=== PATIENT | male | born 1955 | race Caucasian/White ===

== ENCOUNTER 2018-12-20 07:35 | Inpatient (IN) ==
--- NOTE | 2018-11-25 14:20 | Anesthesiology Consultation ---
Date of Service November 25, 2018 Assessment & Plan (1) Encounter for pre-operative examination: Chart Review Chart Review: Acceptable Risk for Surgery and Patient seen in Pre Admission Testing Teaching & Discussion Pre-Anesthesia Teaching/Discussion Notes: Instructed NPO after midnight before surgery,except medications with 15 cc of water. Medication instructions provided according to the PAT guidelines. History Surgery Operation Date: 12/20/18 10:40 Proposed Procedures p Right Total Hip Arthroplasty - Des Botello MD Height/Weight Height: 5 ft 9 in Weight: 108.5 kg Allergies Allergy/AdvReac Type Severity Reaction Status Date / Time celecoxib Allergy Unknown hives Verified 08/01/18 05:37 Penicillins Allergy Unknown RASH Verified 08/01/18 12:50 valdecoxib Allergy Unknown RASH Verified 08/01/18 12:50 Medications Home Medications Medication Instructions Recorded Confirmed Last Taken amlodipine 5 mg PO QAM 07/11/18 11/25/18 08/01/18 0500 gemfibrozil 1 tab PO BID 07/11/18 11/25/18 07/31/18 09:00 levothyroxine 50 mcg PO QAM 07/11/18 11/25/18 08/01/18 0430 pravastatin 10 mg PO QAM 07/11/18 11/25/18 07/31/18 09:00 Past Medical History Medical History Chronic back pain Degenerative disc disease Hyperlipidemia Hypertension Hypothyroidism Obesity Osteoarthritis Past Surgical History Surgical History History of back surgery X2; L4-S1 DECOMPRESSION/FUSION= 08/01/18= GRADE VIEW 1 WITH CRICOID PRESSURE, ETT 8.0 AT [facility] History of total knee replacement LEFT Hx of arthroscopic knee surgery X3 Past Anesthesia History No Hx of Anesthesia Complications and No Family Hx of Anesthesia Complications History of PONV No Social History Smoking Status: Never smoker Do You Dip or Chew Tobacco: Yes (1/2 CAN/DAY (ADVISED NOT TO CHEW AM DOS)) Hx Alcohol Use: Yes Alcohol type: beer alcohol intake frequency: a few times a week Hx Substance Use: No Exercise / Class Metabolic Activity III < 4 Walking/Shop/Light housework Review of Systems Patient denies chest pain, shortness of breath, wheezing, palpitations. Physical Exam Vital Signs VITALS BP 144/83 P 89 TEMP 98.6 SP02 96%RA RESP 20 Full neck and c-spine range of motion. Full TMJ range of motion. TMD 3 finger breaths Mallampati Score 2 Dentition: intact Lungs: clear throughout to auscultation Cardiac: regular rate and rhythm, no murmurs noted Spine: normal Carotid arteries: negative bruit Extremities: no edema Testing Electrocardiogram Date: 07/12/18 Findings: + NSR @ (73) Chest X-Ray Date: 07/12/18 A few bibasilar linear densities favor subsegmental atelectasis or scarring. Otherwise, no acute process within the chest. Laboratory Results 11/25/18 14:40 11/25/18 14:00 Blood Type O Positive 11/25/18 14:40 Antibody Screen NEGATIVE 11/25/18 14:40 PT 10.6 Seconds (9.0-12.0) 11/25/18 14:40 INR 1.1 (0.9-1.1) 11/25/18 14:40 APTT 26.0 Seconds (21.0-31.0) 11/25/18 14:40
--- NOTE | 2018-11-25 14:21 | PAT Medication Instructions ---
Medication Instructions Date of Service November 25, 2018 Home Medications amlodipine 5 mg PO QAM gemfibrozil 1 tab PO BID levothyroxine 50 mcg PO QAM pravastatin 10 mg PO QAM STOP taking 24 hours before surgery gemfibrozil 1 tab PO BID Take morning of surgery With a small sip of water, OTHERWISE NOTHING TO EAT OR DRINK AFTER MIDNIGHT: amlodipine 5 mg PO QAM levothyroxine 50 mcg PO QAM pravastatin 10 mg PO QAM Other Notes If you have any questions please call us at [phone] or [phone] or [phone] or [phone]
[2018-11-25 15:26] LABS: Basophils # (auto) 0.02 K/uL (0-0.2); Basophils % (auto) 0.3 %; Eosinophils # (auto) 0.33 K/uL (0-0.5); Eosinophils % (auto) 5.5 %; Hematocrit (blood only) 41.3 % (42-52); Hemoglobin 14.3 g/dL (14.0-18.0); Immature Granulocytes # (auto) 0.01 K/uL (0.00-0.02); Immature Granulocytes % (auto) 0.2 %; Lymphocytes # (auto) 1.45 K/uL (1.2-3.4); Lymphocytes % (auto) 24.1 %; Mean Corpuscular Hgb Conc 34.6 g/dL (32-36); Mean Corpuscular Volume 84.5 fL (80-100); Mean Platelet Volume 10.9 fL (7.4-10.4); Monocytes # (auto) 0.39 K/uL (0.11-0.59); Monocytes % (auto) 6.5 %; Neutrophils # (auto) 3.81 K/uL (1.4-6.5); Neutrophils % (auto) 63.4 %; Platelet Count 213 K/uL (130-400); RDW Coefficient of Variation 14.2 % (11.5-14.5); RDW Standard Deviation 43.6 fL (36.4-46.3); Red Blood Count 4.89 M/uL (4.7-6.1); White Blood Count 6.01 K/uL (4.8-10.8)
[2018-11-25 15:36] LABS: BUN Creatinine Ratio 11.8 (10-20); Calcium 8.8 mg/dl (8.5-10.1); Creatinine Clr Calc Pharmacy 76.8 ml/min; Est GFR (African American) 73.9; Est GFR (Non-African American) 63.8; Potassium 3.9 mmol/L (3.5-5.1)
[2018-11-25 15:37] LABS: C Reactive Protein 1.03 mg/dl (0-0.29)
[2018-11-25 15:41] LABS: INR 1.1 (0.9-1.1); Prothrombin Time 10.6 Seconds (9.0-12.0)
--- NOTE | 2018-12-14 12:55 | History and Physical Report ---
DATE OF ADMISSION: 11/25/2018 CHIEF COMPLAINT: Right hip pain and discomfort. HISTORY OF PRESENT ILLNESS: A 63-year-old gentleman known to me from a previous left knee replacement done about 3 years ago who presents for surgical treatment of his right hip. He has had a several-year history of hip, buttock, groin and thigh pain. He also had some back issues and recently had some back surgery done by Dr. Shaikh in July of this year. He has continued to struggle with his leg difficulty even after that. They apparently recommend he have his back fixed first. He continues to be bothered by groin pain and thigh pain. The more he walks, the more he limps. He has difficulty putting his shoes and socks on. X-rays show advanced hip arthritis. He now would like to have his right hip fixed. PAST MEDICAL HISTORY: 1. Hypertension. 2. Elevated cholesterol. PAST SURGICAL HISTORY: Previous surgeries include: 1. Back surgery x2, one in 2000 and one in July of 2018. 2. Left knee surgery done by myself, 01/25/2016. ALLERGIES: 1. PENICILLIN WHICH CAUSES HIVES AND ITCHING. No respiratory problems. 2. BEXTRA WHICH CAUSES HIVES. CURRENT MEDICINES: Include: 1. Gemfibrozil 600 mg twice a day. 2. Amlodipine 5 mg. 3. Levothyroxine 50 mcg a day. 4. Pravastatin 10 mg a day. SOCIAL HISTORY: A 63-year-old male patient from [place]. He is . Does not smoke. FAMILY HISTORY: Noncontributory. REVIEW OF SYSTEMS: Negative for diabetes, neurologic problem, vascular problem, bleeding disorders. No chest pain or shortness of breath. No history of DVT or PE. PHYSICAL EXAMINATION: GENERAL: Reveals a pleasant, middle-aged male. Looks to be in pretty good health. HEENT: Benign. NECK: Supple. No lymphadenopathy. LUNGS: Clear to auscultation. HEART: Regular rate and rhythm. ABDOMEN: Soft, nontender, nondistended. EXTREMITIES: Grossly neurovascularly intact except as follows: Examination of the right lower extremity reveals the patient walks with a limp. He is about a 0.5 cm short on the right side compared to the left. He has marked pain with any type of hip motion, particularly internal rotation. He can internally rotate to -10, external rotation to 20 degrees. Negative straight leg raise. X-RAYS: X-rays of the right hip were reviewed. Shows advanced right hip DJD. He has got complete loss of his superior joint space. He has got cystic change of the femoral head and acetabulum. Fairly large medial osteophyte. ASSESSMENT: A 63-year-old male, 3 years out from a left knee replacement and about 5 months out from a recent spine surgery with advanced right hip degenerative joint disease. Appears like his hip is really the limiting factor. He has failed conservative care. PLAN: He would like to proceed with right total hip replacement. We are going to take him to the operating room and do a right total hip replacement. The risks and benefits of this procedure were explained to the patient including but not limited to DVT, PE, , infection, neurological injury, vascular injury, bleeding problem, pain, limited range of motion, stiffness, failure to relieve symptoms, incomplete relief of symptoms, need for further surgery in future, fracture, leg length inequality, nerve palsy, etc. The patient understands and desires to proceed. Informed consent was obtained. He does have his reported PENICILLIN ALLERGY, but does not sound like a true allergy and we can give him Ancef preoperatively. He is planning to be discharged to home using [facility] home health program.
[~2018-12-20 07:35] MED LIST: ACETAMINOPHEN 500 MG TAB PO SCH; BUPIVACAINE 0.5 % 5 MG/1 ML PF 10ML VIAL ONE; CEFAZOLIN 2000MG 2,000 MG/15 ML SYR IV SCH; CeleBREX 200 MG CAP PO SCH; FAMOTIDINE 20 MG TAB PO SCH; GABAPENTIN 300 MG PO SCH; LR 500ML BOLUS, THEN 15ML/HR IV SCH; LR 60ML/HR IV SCH; METOCLOPRAMIDE HCL 10 MG TABLET PO SCH; SCOPOLAMINE 1.5 MG TDSY TD SCH; TRANEXAMIC ACID 1,000 MG **IV Pre-op IV SCH
--- NOTE | 2018-12-20 08:39 | History & Physical Bridge Note ---
Date of Service December 20, 2018 History & Physical Bridge Note I have examined the patient, reviewed the History & Physical and in the interval since the performance of the History & Physical I have noted the following changes of clinical significance: no changes noted
[2018-12-20] MEDS ORDERED: CEFAZOLIN 2,000 MG/15 ML IV PUSH IV ONE (09:33)
[2018-12-20] MEDS ORDERED: fentaNYL citrate 100 MCG/2 ML VIAL IV PRN (10:08)
[2018-12-20] MEDS ORDERED: ePHEDrine sulfate 50 MG/ML AMP IV PRN ×2 (10:08→10:10)
[2018-12-20] MEDS ORDERED: ONDANSETRON INJ 2 MG/ML 2 ML VIAL IV PRN ×3 (10:08→14:36)
[2018-12-20] MEDS ORDERED: ATROPINE SULFATE 0.1 MG/ML 10ML SYR IV PRN (10:08)
[2018-12-20] MEDS ORDERED: NALOXONE HCL 0.4 MG/1 ML VIAL/CARP IV PRN ×2 (10:10→14:36)
[2018-12-20] MEDS ORDERED: LORazepam 0.5 MG/1 ML VIAL IV PRN (10:10)
[2018-12-20] MEDS ORDERED: MEPERIDINE HCL 25 MG/ML CARP IV PRN (10:10)
[2018-12-20] MEDS ORDERED: MoRPHine SULFATE 4 MG/ML 1 ML CARP\\VIAL IV PRN (10:10)
[2018-12-20] MEDS ORDERED: DiphenhydrAMINE HCL 50 MG/ML VIAL IV PRN ×2 (10:10)
[2018-12-20] MEDS ORDERED: LORazepam 1 MG TAB PO PRN (10:10)
[2018-12-20] MEDS ORDERED: HYDROmorphone INJ 0.5 MG/0.5 ML SYR IV PRN ×2 (10:10→14:36)
[2018-12-20] MEDS ORDERED: MoRPHine SULFATE PF 1 MG/ML 10 ML AMP/VIAL INT SPINAL ONE (10:10)
[2018-12-20] MEDS ORDERED: LACTATED RINGER'S 500 ML IV PRN (10:10)
[2018-12-20] MEDS ORDERED: NALBUPHINE HCL INJ 10 MG/ML AMP IV PRN (10:10)
[2018-12-20] MEDS ORDERED: KETOROLAC 30 MG/ML VIAL IV PRN (10:10)
[2018-12-20] MEDS ORDERED: NALOXONE HCL 0.08 MG in SYRINGE 1.8 ML IV PRN (10:10)
[2018-12-20] MEDS ORDERED: NALOXONE HCL 1 MG in SODIUM CHLORIDE 0.9% 1000ML 1,000 ML IV PRN (10:10)
[2018-12-20] MEDS ORDERED: PROMETHAZINE HCL 6.25 MG in SODIUM CHLORIDE 0.9% 50 ML IV PRN (10:10)
[2018-12-20] MEDS ORDERED: NO NARCOTICS OR SEDATIVES SCH (10:15)
[2018-12-20] MEDS ORDERED: MIDAZOLAM HCL 1 MG/ML 2ML VIAL ONE ×2 (10:27→11:21)
[2018-12-20] MEDS ORDERED: fentaNYL citrate 100 MCG/2 ML VIAL ONE (10:27)
[2018-12-20] MEDS ORDERED: MoRPHine SULFATE PF 1 MG/ML 10 ML AMP/VIAL ONE (10:28)
[2018-12-20] MEDS ORDERED: BACITRACIN INJ 50,000 UNIT VIAL ONE (10:49)
[2018-12-20] MEDS ORDERED: BUPIVACAINE/EPINEPHRINE 0.5% MPF 1:200,000 30 ML VIAL ONE (10:49)
[2018-12-20] MEDS ORDERED: KETAMINE HCL INJ 50 MG/ML 10 ML VIAL ONE (11:21)
[2018-12-20] MEDS ORDERED: DiphenhydrAMINE HCL 50 MG/ML VIAL ONE (11:40)
[2018-12-20] MEDS ORDERED: ONDANSETRON INJ 2 MG/ML 2 ML VIAL ONE (11:40)
[2018-12-20] MEDS ORDERED: PROPOFOL IV EMULSION 10 MG/ML 20 ML VIAL IV ONE (12:31)
[2018-12-20] MEDS ORDERED: LIDOCAINE HCL 2% 2 ML VIAL/AMP(20MG/ML) INFIL ONE (12:31)
--- NOTE | 2018-12-20 12:44 | Post Operative Brief Note ---
Immediate Post Op Note v1 Date of Surgery December 20, 2018 Pre & Post Diagnosis Operation Date: 12/20/18 10:40 Pre-Op Diagnosis: Right Hip Degenerative Joint Disease Post-Op Diagnosis: Right Hip Degenerative Joint Disease Procedure Operation Date: 12/20/18 10:40 Actual Procedures p Right Total Hip Arthroplasty, Uncemented(Right) - Des Botello MD Surgeon Des Botello MD [employer] Supervisor Geena, PAC Estimated Blood Loss 300 Findings Consistent with Post-Op Diagnosis Fluids 1300 cc Specimens Right Femoral Head Drains Omer Catheter Anesthesia Type Spinal MAC Complications none Disposition Accompanied Patient To Recovery: Yes Disposition: Recovery Room
--- NOTE | 2018-12-20 13:32 | Anesthesiology Progress Note ---
Date of Service December 20, 2018 Anesthesia Post Procedure Vital Signs Vital Signs: Temp Pulse Pulse Resp BP Pulse Ox 12/20/18 13:20 61 16 145/81 H 63 L 12/20/18 13:10 76 15 151/75 H 99 12/20/18 13:00 74 15 147/86 H 99 12/20/18 12:50 102 H 17 124/88 97 12/20/18 12:44 36.2 C L 85 12 131/69 96 12/20/18 09:06 37 C 72 20 145/86 H 95 Pain Intensity Right Hip: Pain Intensity: 2 Notes Mental Status: alert / awake / arousable Patient Amnestic to Procedure: Yes Nausea / Vomiting: adequately controlled Pain: adequately controlled Airway Patency, RR, SpO2: stable & adequate BP & HR: stable & adequate Hydration State: stable & adequate Neuraxial Anesthesia: was administered and sensory block is resolving Anesthetic Complications: no major complications apparent
--- NOTE | 2018-12-20 13:49 | XRay Report ---
XR hip 1V RT w pelvis CLINICAL HISTORY: Postoperative evaluation. COMPARISON: Right hip radiographs November 22, 2018. FINDINGS: Postoperative findings within the lumbosacral spine are partially imaged. Alignment of the total right hip arthroplasty is anatomic. There are 2 acetabular screws. Skin jai are present. T here is no fracture or unexpected radiopaque foreign body. IMPRESSION: Expected findings following total right hip arthroplasty. Electronically signed by: Justino Marshall M.D. 12/20/2018 1:48 PM
[2018-12-20] MEDS ORDERED: BISACODYL 10 MG SUPP PR PRN (14:36)
[2018-12-20] MEDS ORDERED: METOCLOPRAMIDE HCL INJ 5 MG/ML 2 ML VIAL IV PRN (14:36)
[2018-12-20] MEDS ORDERED: MAGNESIUM HYDROXIDE SUSP 30 ML UDC PO PRN (14:36)
[2018-12-20] MEDS ORDERED: TAMSULOSIN HCL 0.4 MG CAP PO PRN (14:36)
[2018-12-20] MEDS ORDERED: TRAMADOL HCL 50 MG TABLET PO PRN (14:36)
[2018-12-20] MEDS ORDERED: ALUMINUM/MAGNESIUM SUSP 30 ML UDC PO PRN (14:36)
[2018-12-20] MEDS ORDERED: SODIUM CHLORIDE 0.9% 1000ML 1,000 ML IV SCH (14:36)
[2018-12-20] MEDS: SODIUM CHLORIDE 0.9% 1000ML 1,000 ML IV SCH (16:31)
[2018-12-20] MEDS: CHECK SCOPOLAMINE PATCH PLACEMENT SCH (17:19)
[2018-12-20] MEDS: FERROUS GLUCONATE 324 MG TAB PO SCH (18:32)
[2018-12-20] MEDS: ASCORBIC ACID 500 MG TAB PO SCH (18:32)
[2018-12-20] MEDS: CEFAZOLIN 2000MG 2,000 MG/15 ML SYR IV SCH (18:35)
[2018-12-20] MEDS ORDERED: TRANEXAMIC ACID 1,000 MG in 0.9 % SODIUM CHLORIDE 100 ML IV SCH (19:00)
[2018-12-20] MEDS: ASPIRIN 81 MG ECTAB PO SCH (20:40)
[2018-12-20] MEDS: GEMFIBROZIL 600 MG TAB PO SCH (20:40)
[2018-12-20] MEDS: DOCUSATE SODIUM 100 MG CAP PO SCH (20:40)
[2018-12-20] MEDS: ACETAMINOPHEN 500 MG TAB PO SCH (20:41)
[2018-12-20] MEDS ORDERED: SENNA 8.6 MG TAB PO SCH (21:00)
--- NOTE | 2018-12-20 23:30 | Operative Report ---
DATE OF OPERATION: 12/20/2018 SURGEON: Des Botello MD BLADE ALIGNER: SIL Wells PREOPERATIVE DIAGNOSIS: Right hip degenerative joint disease. POSTOPERATIVE DIAGNOSIS: Right hip degenerative joint disease. PROCEDURE PERFORMED: Right ceramic on highly cross-linked polyethylene uncemented total hip arthroplasty. COMPLICATIONS: None. ESTIMATED BLOOD LOSS: 300 mL. FLUID REPLACEMENT: 1300 mL of crystalloid fluid replacement. ANESTHESIA: Spinal. DRAINS: None. SPECIMENS: Right femoral head sent for pathology. OPERATIVE INDICATIONS: The patient is a 63-year-old gentleman who has had about a several year history of right hip pain and discomfort. He was also having some back issues and had some back surgery several months ago which did not give him a whole lot of relief. He continued to be debilitated by this right hip and leg pain. X-rays revealed advanced right hip DJD. He has failed conservative care and elected to proceed with total hip arthroplasty. OPERATIVE FINDINGS: Advanced right hip DJD. He had pretty extensive synovitis and had significant joint effusion. Grade 4 [id number] disease of the femoral head and acetabulum. Fairly large medial osteophyte of the acetabulum. OPERATIVE IMPLANTS: Operative implants consisted of, 1. Biomet G7 size 60 mm acetabular shell. 2. A 6.5 cancellous acetabular screws, 1 at 35 mm length and 1 at 25 mm length. 3. An apex hole eliminator. 4. The highly cross-linked polyethylene liner with a 60 mm outer diameter, 36 mm inner diameter. 5. DePuy size 15 KLA femoral stem. 6. A +5 x 36 mm ceramic articular ball. OPERATIVE PROCEDURE: The patient was taken to the Operating Room and placed on the Operating Room table in supine position. All contact areas were appropriately padded. I.V. antibiotics followed by anesthesia team. A spinal anesthetic had been implemented in the Holding Area. Omer catheter was placed in sterile fashion. The patient was then placed in the left lateral decubitus position. An axillary roll was placed. [facility] was used for positioning. The right hip and leg were then prepped and draped in usual sterile fashion. A posterolateral approach on the right hip was then performed through a curvilinear incision centered over the greater trochanter. Sharp dissection was carried through the subcutaneous tissue down to the level of the IT band and gluteal fascia. The IT band and gluteal fascia were incised longitudinally in line with skin incision. The underlying greater trochanteric bursa was excised. The piriformis and external rotators were tagged and taken off the posterior aspect of the hip joint capsule. Great care was taken throughout the procedure to protect the sciatic nerve at all times. Posterior capsulotomy was then performed. Hip was internally rotated and dislocated. Femoral neck osteotomy cut was made with the final cut about 12 mm above the lesser trochanter. Femoral head was removed and sent for pathology. The femur was retracted anteriorly. Attention was then drawn to the acetabulum. The acetabular labrum was excised. The pulvinar fat was excised. Sequential reaming of the acetabulum was then performed beginning with a size 53 and progressing up to 59. A Biomet G7 size 60 acetabular shell was then placed in about 40 degrees of lateral opening and 20 degrees of anteversion. It was fixed with two 6.5 cancellous acetabular screws. A trial liner was placed. Attention was then drawn to the femur. The proximal femur was entered with a cookie cutter followed by canal finder. I broached beginning with a size 8 and progressing up to 15. We got excellent fit ay 15. A Calcar reamer was used to smoothen off the calcar. I then trialed the hip in +5 x 36 mm articular ball seemed to recreate leg lengths equal and appropriate soft tissue tension as well as stability. It was fully stable in full extension and external rotation and flexion to 90 degrees, internal rotation to 60+ degrees. We elected to place these implants. All trial implants were removed. An apex hole eliminator was placed. A highly cross-linked polyethylene liner was placed. A DePuy size 15 KLA femoral stem was impacted in position. A +5 36 mm ceramic articular ball was placed. Hip was located and once again found to be stable. Attention was then drawn toward closing. The wound was irrigated with copious amounts of pulse lavage solution. I did inject locally with 60 mL of 0.5% Marcaine with epinephrine. The posterior capsule and external rotators were repaired through drill holes in the posterior trochanter with #2 Ti-Cron suture. The IT band and gluteal fascia were then closed with #1 PDS suture in running fashion. Subcutaneous tissues were then closed with #2 Dexon suture in a buried interrupted fashion. Skin was then closed with skin jai. Leg was then cleaned and dried and a sterile dressing of Xeroform, 4 x 4's, sterile ABD pad and foam tape was applied. The patient was then transferred to the Recovery Room in stable condition. The patient tolerated the procedure well with no complication. All needle and sponge counts were correct at the end of the operation. I attest to the content of the Intraoperative Record and any orders documented therein. Any exception s are noted below.
[2018-12-21] MEDS: CEFAZOLIN 2000MG 2,000 MG/15 ML SYR IV SCH (01:39)
[2018-12-21] MEDS: CHECK SCOPOLAMINE PATCH PLACEMENT SCH (01:40)
[2018-12-21] MEDS: SODIUM CHLORIDE 0.9% 1000ML 1,000 ML IV SCH (02:59)
[2018-12-21] MEDS: ACETAMINOPHEN 500 MG TAB PO SCH ×2 (05:56→13:21)
[2018-12-21] MEDS ORDERED: LEVOTHYROXINE SODIUM 50 MCG TABLET PO SCH (06:30)
[2018-12-21 07:40] LABS: Basophils # (auto) 0.01 K/uL (0-0.2); Basophils % (auto) 0.1 %; Eosinophils # (auto) 0.17 K/uL (0-0.5); Eosinophils % (auto) 1.7 %; Hematocrit (blood only) 39.3 % (42-52); Hemoglobin 13.5 g/dL (14.0-18.0); Immature Granulocytes # (auto) 0.03 K/uL (0.00-0.02); Immature Granulocytes % (auto) 0.3 %; Lymphocytes # (auto) 1.02 K/uL (1.2-3.4); Mean Corpuscular Hgb Conc 34.4 g/dL (32-36); Mean Corpuscular Volume 85.6 fL (80-100); Monocytes # (auto) 1.21 K/uL (0.11-0.59); Monocytes % (auto) 11.9 %; Neutrophils # (auto) 7.73 K/uL (1.4-6.5); Platelet Count 180 K/uL (130-400); RDW Coefficient of Variation 14.1 % (11.5-14.5); Red Blood Count 4.59 M/uL (4.7-6.1); White Blood Count 10.17 K/uL (4.8-10.8)
[2018-12-21 08:14] LABS: BUN Creatinine Ratio 10.1 (10-20); Calcium 8.1 mg/dl (8.5-10.1); Creatinine Clr Calc Pharmacy 72.9 ml/min; Est GFR (African American) 69.7; Est GFR (Non-African American) 60.2; Potassium 3.5 mmol/L (3.5-5.1)
--- NOTE | 2018-12-21 08:47 | Anesthesiology Progress Note ---
Date of Service December 21, 2018 Anesthesia Post Procedure Vital Signs Vital Signs: Temp Pulse Pulse Pulse Resp BP Pulse Ox 12/21/18 07:14 36.8 C 87 18 152/79 H 96 12/21/18 05:37 18 93 12/21/18 04:38 18 95 12/21/18 04:37 37.2 C 12/21/18 04:04 16 94 12/21/18 03:47 37.8 C H 99 H 20 166/90 H 91 12/21/18 02:30 18 93 12/21/18 01:48 18 94 12/21/18 00:30 37.5 C 12/21/18 00:00 18 94 12/20/18 23:51 37.7 C H 96 H 20 164/89 H 94 12/20/18 22:35 16 95 12/20/18 21:30 20 96 12/20/18 20:26 18 96 12/20/18 19:00 18 95 12/20/18 18:37 20 93 12/20/18 17:37 36.9 C 88 17 156/84 H 94 12/20/18 17:35 20 98 12/20/18 16:42 18 98 12/20/18 16:35 37.1 C 84 18 154/77 H 98 12/20/18 15:35 37 C 78 20 142/92 H 96 12/20/18 15:05 36.4 C L 70 18 160/97 H 100 12/20/18 14:35 37.1 C 72 16 146/86 H 97 12/20/18 14:15 37.6 C H 68 17 138/87 100 12/20/18 14:00 71 17 147/91 H 100 12/20/18 13:45 58 L 13 151/95 H 98 12/20/18 13:30 37.2 C 58 L 16 137/81 100 12/20/18 13:20 61 16 145/81 H 99 12/20/18 13:10 76 15 151/75 H 99 12/20/18 13:00 74 15 147/86 H 99 12/20/18 12:50 102 H 17 124/88 97 12/20/18 12:44 36.2 C L 85 12 131/69 96 12/20/18 09:06 37 C 72 20 145/86 H 95 Pain Intensity Right Hip: Pain Intensity: 0 Notes Mental Status: alert / awake / arousable Nausea / Vomiting: adequately controlled Pain: adequately controlled Airway Patency, RR, SpO2: stable & adequate BP & HR: stable & adequate Hydration State: stable & adequate Neuraxial Anesthesia: was administered and sensory block resolved Anesthetic Complications: no major complications apparent and Pt Satisfied with anesthetic care
[2018-12-21] MEDS ORDERED: PRAVASTATIN SOD 10 MG TAB PO SCH (09:00)
[2018-12-21] MEDS: ASCORBIC ACID 500 MG TAB PO SCH (09:00)
[2018-12-21] MEDS ORDERED: AMLODIPINE BESYLATE 5 MG TAB PO SCH (09:00)
[2018-12-21] MEDS: FERROUS GLUCONATE 324 MG TAB PO SCH (09:00)
[2018-12-21] MEDS ORDERED: MULTIVITAMIN TAB PO SCH (09:00)
[2018-12-21] MEDS: ASPIRIN 81 MG ECTAB PO SCH (09:00)
[2018-12-21] MEDS: DOCUSATE SODIUM 100 MG CAP PO SCH (09:00)
[2018-12-21] MEDS: GEMFIBROZIL 600 MG TAB PO SCH (09:01)
--- NOTE | 2018-12-21 10:03 | Progress Note ---
DATE: 12/21/2018 SUBJECTIVE: A 63-year-old gentleman postop day #1 from right hip replacement. Hips a bit more sore this morning. No chest pain or shortness of breath. Not feeling dizzy or lightheaded. OBJECTIVE: VITAL SIGNS: Temperature is 36.8. Vital signs stable. GENERAL: Physical examination reveals a pleasant, middle-aged male. He is sitting on bed, looks pretty comfortable this morning. EXTREMITIES: Examination of the right hip reveals the dressing to be clean, dry and intact. Leg lengths are equal. He can dorsiflex and plantarflex his foot appropriately. His thigh is soft and supple. He is neurologically intact. LABORATORY DATA: Hemoglobin 13.5. Hematocrit is 39.3. Electrolytes are stable. ASSESSMENT: A 63-year-old gentleman postop day 1 from right hip replacement, doing pretty well. A little bit more sore today which is not expected. Hip is located. He is neurologically intact. PLAN: 1. DVT prophylaxis including thigh-high TEDs, SCDs, and aspirin twice a day. 2. PT/OT. Weight bear as tolerated. Right total hip protocol. 3. Pain control, doing pretty well with current pain regimen. He certainly got some pain and it seems manageable. 4. Disposition: He is planning to be discharged home with some home health. We will see how therapy goes today as far as discharge plans.
[2018-12-21] MEDS ORDERED: DC INTRASPINAL MORPHINE SCH (10:14)
[2018-12-21] MEDS ORDERED: KETOROLAC 30 MG/ML VIAL IV SCH (18:00)
--- NOTE | 2018-12-27 15:54 | Discharge Summary ---
ADMITTING PHYSICIAN AND SURGEON: Dr. Botello. ADMITTING DIAGNOSIS: Right hip degenerative joint disease. SURGERY PERFORMED: Right total hip arthroplasty. SECONDARY DIAGNOSES: Hypertension, elevated cholesterol. CONSULTS: None obtained. HISTORY AND PHYSICAL EXAMINATION: Well documented in the patient's chart. HOSPITAL COURSE: The patient was admitted on 12/20/2018 and underwent total hip arthroplasty, tolerated the procedure well. There were no complications. He was transferred to the PACU postoperatively and later to the orthopedic floor for further care. He was given Ancef for antibiotic prophylaxis, LIBRADO stockings, SCDs and aspirin for DVT prophylaxis. Hemoglobin, hematocrit and vital signs were monitored during his hospital stay and remained stable. He did not require any blood transfusions. There were no complications. By postoperative day 1, he was tolerating a regular diet, pain was controlled with oral pain medicine. He was participating in physical therapy. Postop day 1, he was discharged home, set up with home health services, given printed discharge instructions including new prescriptions for extra strength Tylenol, aspirin and tramadol. Continue his home medications, continue physical therapy, weightbearing as tolerated, LIBRADO stockings, total hip precautions. Follow up approximately 2 weeks postoperatively or sooner if any problems or concerns.
== END 2018-12-21 13:43 | disposition home health service (06) | DRG 470 ==
LOC: ASU 07:35 → 3N 13:48